=== PATIENT | male | born 1965 | race African-American/Black ===

== ENCOUNTER 2017-09-02 21:06 | Emergency (ER) | payer SELFPAY ==
[~2017-09-02] VITALS: Ht 188 cm; Wt 118.0 kg
[2017-09-03] MEDS ORDERED: ACETAMINOPHEN 500MG TABLET PO ONE (01:00)
[2017-09-03] MEDS ORDERED: KETOROLAC 30MG/ML VIAL IM ONE (03:15)
[2017-09-03 04:28] VITALS: BP 146/87
== END 2017-09-03 05:23 | disposition home or self-care (01) ==
LOC: ER 21:06
DX: S82.201A Unspecified fracture of shaft of right tibia, initial encounter for closed fracture (principal); F12.10 Cannabis abuse, uncomplicated; F17.200 Nicotine dependence, unspecified, uncomplicated; Y08.89XA Assault by other specified means, initial encounter; Y93.89 Activity, other specified; Y92.89 Other specified places as the place of occurrence of the external cause; Y99.8 Other external cause status
CPT/HCPCS: 29505; 73590; 96372; 99284; J1885; Z7610